=== PATIENT | female | born 1980 | race Caucasian/White ===

== ENCOUNTER 2018-04-04 03:42 | Emergency (ER) | payer MEDICARE ==
[~2018-04-04] VITALS: Ht 175.3 cm; Wt 145.6 kg
[~2018-04-04 03:42] MED LIST: ADIPEX-P37.5 M1 PO; ASMANEX0.24 GM INH; ATIVAN1 MG PO; DILAUDID8 MG PO; ELIQUIS2.5 MG PO; FORADIL12 MCG INH; HYDROCHLOROTH12.5 M1 PO; HYDROCODONE-APA1 TAB PO; PRILOSEC20 MG PO; ROBAXIN-750750 MG PO; SINGULAIR10 MG PO; VENTOLIN HFA18 GM INH; ZOCOR20 MG PO
[2018-04-04 03:48] VITALS: Ht 175.3 cm; Wt 145.6 kg
[2018-04-04] MEDS ORDERED: BREO ELLIPTA 21 EACH (03:52)
[2018-04-04] MEDS ORDERED: COZAAR50 MG PO (03:54)
[2018-04-04] MEDS ORDERED: ZOCOR20 MG PO (03:54)
[2018-04-04] MEDS ORDERED: HYDROCHLOROTHIA25 MG PO (03:55)
[2018-04-04] MEDS ORDERED: ADDERALL 30 MG30 MG PO (03:55)
[2018-04-04] MEDS ORDERED: RANITIDINE HCL150 M1 PO (03:55)
[2018-04-04] MEDS ORDERED: ZYRTEC10 MG (03:55)
[2018-04-04] MEDS ORDERED: XANAX2 MG PO (03:56)
[2018-04-04] MEDS ORDERED: SOMA350 MG PO (03:56)
[2018-04-04] MEDS ORDERED: DOXEPIN HCL75 MG PO (03:57)
[2018-04-04] MEDS ORDERED: ALBUTEROL2.5 MG/3 M INH (05:05)
[2018-04-04 05:11] VITALS: BP 100/70
== END 2018-04-04 05:13 | disposition home or self-care (01) ==
LOC: D.ER 03:42
DX: J44.9 Chronic obstructive pulmonary disease, unspecified (principal); J45.909 Unspecified asthma, uncomplicated; R06.02 Shortness of breath; I10 Essential (primary) hypertension

== ENCOUNTER → 2018-05-16 16:32 | Outpatient (CLI) | payer MEDICARE ==
[2018-04-04 03:48] VITALS: BMI 47.8
[~2018-05-16 16:32] MED LIST changes: +ADDERALL 30 MG30 MG PO; +ALBUTEROL2.5 MG/3 M INH; +BREO ELLIPTA 21 EACH; +COZAAR50 MG PO; +DOXEPIN HCL75 MG PO; +HYDROCHLOROTHIA25 MG PO; +RANITIDINE HCL150 M1 PO; +SOMA350 MG PO; +XANAX2 MG PO; +ZYRTEC10 MG
== END | disposition home or self-care (01) ==
LOC: D.US 16:00
DX: M79.602 Pain in left arm (principal)

== ENCOUNTER 2018-10-04 16:12 | Inpatient (IN) | payer MEDICARE ==
[~2018-10-04] VITALS: Ht 175.3 cm; Wt 149.1 kg
[2018-10-04 17:37] LABS: BASOPHILS 0.2 % (0-2); EOSINOPHILS 2.5 % (0-7); HEMATOCRIT 38.9 % (36.0-48.0); HEMOGLOBIN 13.7 g/dL (12-16); IMMATURE GRANULOCYTES 0.3 % (0-5); LYMPHOCYTES 17.1 % (15-50); MCH 31.9 pg (26.0-34.0); MCHC 35.2 g/dL (31.0-37.0); MCV 90.5 fL (80.0-100.0); MEAN PLATELET VOLUME 8.7 fL (7.4-10.4); MONOCYTES 7.1 % (2-11); NEUTROPHILS 72.8 % (40-80); PLATELET COUNT 181 10x3/uL (130-400); RDW 13.3 % (11.5-14.5); WBC 10.3 10x3/uL (4.8-10.8)
[2018-10-04 17:51] LABS: ALBUMIN 3.5 g/dL (3.4-5.0); ANION GAP 10.7 mmol/L (8-16); BILIRUBIN - TOTAL 1.44 mg/dL (0.2-1.3); CALCIUM 8.7 mg/dL (8.5-10.1); CARBON DIOXIDE 30.6 mmol/L (21.0-32.0); CREATININE - SERUM 0.9 mg/dL (0.6-1.3); POTASSIUM - SERUM 3.3 mmol/L (3.5-5.1); PROTEIN - SERUM 7.1 g/dL (6.4-8.2)
--- NOTE | 2018-10-04 19:26 | NUR ---
REC'D PATIENT FROM ER. NO S/S OF DISTRESS. GUEST AT BEDSIDE. PATIENT DENIES NEEDS AT THIS TIME. WILL CONTINUE TO MONITOR.
[2018-10-04 19:44] VITALS: BP 141/84
[2018-10-04] MEDS ORDERED: AMOXICILLIN500 M1 PO (19:45)
[2018-10-04] MEDS ORDERED: PROZAC20 MG PO (19:45)
[2018-10-04] MEDS ORDERED: LEVOCETIRIZINE PO (19:47)
[2018-10-04 22:55] VITALS: BP 141/84; BMI 48.5
[2018-10-05 00:28] VITALS: BP 119/74
[2018-10-05 04:00] VITALS: BP 124/80
[2018-10-05 07:26] LABS: BASOPHILS 0.3 % (0-2); EOSINOPHILS 2.7 % (0-7); HEMATOCRIT 38.1 % (36.0-48.0); IMMATURE GRANULOCYTES 0.1 % (0-5); LYMPHOCYTES 23.5 % (15-50); MCH 31.1 pg (26.0-34.0); MCHC 34.1 g/dL (31.0-37.0); MCV 91.1 fL (80.0-100.0); MEAN PLATELET VOLUME 8.9 fL (7.4-10.4); MONOCYTES 9.3 % (2-11); NEUTROPHILS 64.1 % (40-80); PLATELET COUNT 211 10x3/uL (130-400); RBC 4.18 10x6/uL (4.00-5.40); RDW 13.6 % (11.5-14.5)
[2018-10-05 07:30] LABS: WBC 7.7 10x3/uL (4.8-10.8)
[2018-10-05 07:56] VITALS: BP 105/56
[2018-10-05 08:19] VITALS: Ht 175.3 cm; Wt 149.1 kg
[2018-10-05 08:27] LABS: ALBUMIN 3.3 g/dL (3.4-5.0); ALKALINE PHOSPHATASE 74 U/L (46-116); ALT (SGPT) 66 U/L (10-68); BILIRUBIN - TOTAL 1.08 mg/dL (0.2-1.3); CALC OSMOLALITY 276 mosm/kg (275-300); CARBON DIOXIDE 31.2 mmol/L (21.0-32.0); CHLORIDE - SERUM 102 mmol/L (98-107); CREATININE - SERUM 0.7 mg/dL (0.6-1.3); GLUCOSE 87 mg/dL (74-106); POTASSIUM - SERUM 3.4 mmol/L (3.5-5.1); PROTEIN - SERUM 6.9 g/dL (6.4-8.2); SODIUM 140 mmol/L (136-145); UREA NITROGEN 9 mg/dL (7-18); eGFR NON AFRICAN AMERICAN > 90 mL/min (90-120)
--- NOTE | 2018-10-05 09:32 | NUR ---
PATIENT REFUSES XANAX AND SOMA AND NICOTINE PATCH, REQUEST THEY BE PRN
[2018-10-05 12:10] VITALS: BP 107/74
[2018-10-05 15:55] VITALS: BP 126/70
[2018-10-05 16:43] LABS: APPEARANCE CLEAR (CLEAR); BILIRUBIN NEGATIVE (NEGATIVE); COLOR STRAW (YELLOW); GLUCOSE NEGATIVE (NEGATIVE); KETONE NEGATIVE (NEGATIVE); NITRITE NEGATIVE (NEGATIVE); PROTEIN NEGATIVE (NEGATIVE); UROBILINOGEN NORMAL (NORMAL)
[2018-10-05 16:44] LABS: BACTERIA FEW /hpf (NONE SEEN); EPITHELIAL CELLS 0-5 /hpf (0-5); RED CELLS - URINE 0-5 /hpf (0-5); WHITE CELLS - URINE 0-5 /hpf (0-5); YEAST >1+ WITH HYPHAE /hpf (NONE SEEN)
[2018-10-05 16:53] LABS: UDS - AMPHET POSITIVE QUAL (NEGATIVE); UDS - BARB NEGATIVE QUAL (NEGATIVE); UDS - BENZO NEGATIVE QUAL (NEGATIVE); UDS - COCAINE NEGATIVE QUAL (NEGATIVE); UDS - OPIATE POSITIVE QUAL (NEGATIVE); UDS - PCP NEGATIVE QUAL (NEGATIVE); UDS - THC NEGATIVE QUAL (NEGATIVE)
--- NOTE | 2018-10-05 16:53 | NUR ---
PATIENT REQUEST MECHANICAL SOFT DIET FOR NOW SHE IS HAVING DIFFICULTY SWALLOWING HER FOOD DUE TO THE FACIAL EDEMA
--- NOTE | 2018-10-05 19:15 | NUR ---
PATIENT RESTING IN BED AND DENIES NEEDS AT THIS TIME. BED IN LOWEST POSITION AND CALL LIGHT WITHIN REACH. ENCOURAGED THE PATIENT TO CALL IF SHE HAS NEEDS. WILL CONTINUE TO MONITOR.
[2018-10-05 19:52] VITALS: BP 128/70
[2018-10-06 04:00] VITALS: BP 130/61
[2018-10-06 06:48] LABS: BASOPHILS 0.3 % (0-2); EOSINOPHILS 3.3 % (0-7); HEMATOCRIT 37.8 % (36.0-48.0); HEMOGLOBIN 12.7 g/dL (12-16); IMMATURE GRANULOCYTES 0.1 % (0-5); LYMPHOCYTES 28.6 % (15-50); MCH 31.3 pg (26.0-34.0); MCHC 33.6 g/dL (31.0-37.0); MEAN PLATELET VOLUME 9.1 fL (7.4-10.4); MONOCYTES 10.1 % (2-11); NEUTROPHILS 57.6 % (40-80); PLATELET COUNT 213 10x3/uL (130-400); RBC 4.06 10x6/uL (4.00-5.40); RDW 13.7 % (11.5-14.5); WBC 6.7 10x3/uL (4.8-10.8)
[2018-10-06 06:59] LABS: MCV 93.1 fL (80.0-100.0)
[2018-10-06 07:00] LABS: CALCIUM 9.1 mg/dL (8.5-10.1); CARBON DIOXIDE 32.6 mmol/L (21.0-32.0); CHLORIDE - SERUM 102 mmol/L (98-107); CREATININE - SERUM 0.8 mg/dL (0.6-1.3); POTASSIUM - SERUM 3.6 mmol/L (3.5-5.1); SODIUM 141 mmol/L (136-145); eGFR NON AFRICAN AMERICAN 85 mL/min (90-120)
[2018-10-06 07:02] LABS: CALC OSMOLALITY 278 mosm/kg (275-300); GLUCOSE 61 mg/dL (74-106); UREA NITROGEN 13 mg/dL (7-18)
--- NOTE | 2018-10-06 07:15 | NUR ---
RESPIRATORY AT BEDSIDE, PT A/O X4, RESP EVEN AND NONLABORED ON RA. RT WRIST NS AT 10. PT DENIES ANY NEEDS AT THIS TIME. CALL LIGHT IN REACH, NAD NOTED, WILL CONTINUE PLAN OF CARE.
[2018-10-06 07:42] VITALS: BP 103/75
--- NOTE | 2018-10-06 08:06 | NUR ---
AM MEDS GIVEN AT THIS TIME. ALSO GAVE 1MG OF DILAUDID FOR PAIN LEVEL OF 10/10. PT DENIES ANY OTHER NEEDS AT THIS TIME. CALL LIGHT IN REACH, NAD NOTED, FEMALE FRIEND AT BEDSIDE, NAD NOTED, WILL CONTINUE TO MONITOR.
--- NOTE | 2018-10-06 08:45 | MORECARE ---
CASE MANAGEMENT DISCHARGE SUMMARY PATIENT: EDILIA KUMAR UNIT: [id number] ADM DATE: 10/04/18 AGE: 38 : 80 SEX: F ROOM/BED: D.1202 AUTHOR: JAY JAY ESPAÑA PHYSICIAN: REFERRING PHYSICIAN: ARACELI POWELL MD DATE OF SERVICE: 10/06/18 Discharge Plan Patient Name: EDILIA KUMAR Facility: [facility]:[place] : 1980 Planned Disposition: Home Anticipated Discharge Date: Discharge Date: Expected LOS: Initial Reviewer: [email or web address] Initial Review Date: 10/04/2018 Generated: 10/06/18 9:45 am DCPIA - Discharge Planning Initial Assessment Updated by [email or web address]: Anne Marie Sue on 10/06/18 8:45 am * Is the patient Alert and Oriented? Yes * How many steps to enter\exit or inside your home? * PCP [place] * Pharmacy [facility] in [facility] * Preadmission Environment Home with Family * ADLs Independent * List name and contact numbers for known caregivers / representatives who currently or will assist patient after discharge: kenneth [phone] * Verbal permission to speak to the caregivers and representatives has been obtained from the patient. Yes * Additional services required to return to the preadmission environment? No * Can the patient safely return to the preadmission environment? Yes * Has this patient been hospitalized within the prior 30 days at any hospital? No Patient Name: EDILIA KUMAR Page [id number] at 0845 All edits/amendments must be made on the electronic document DICTATION DATE: 10/06/1844 SHAPE BRICK MOLDER: MAIKEL 10/06/1844 RPT#: [id number] DC DATE: STATUS: ADM IN [facility] [address] [place] [address] END OF REPORT
--- NOTE | 2018-10-06 08:52 | MORECARE ---
CASE MANAGEMENT DISCHARGE SUMMARY PATIENT: EDILIA KUMAR UNIT: [id number] ADM DATE: 10/04/18 AGE: 38 : 80 SEX: F ROOM/BED: D.1202 AUTHOR: JAY JAY ESPAÑA PHYSICIAN: REFERRING PHYSICIAN: ARACELI POWELL MD DATE OF SERVICE: 10/06/18 Discharge Plan Patient Name: EDILIA KUMAR Facility: [facility]:[place] : 1980 Planned Disposition: Home Anticipated Discharge Date: Discharge Date: Expected LOS: Initial Reviewer: [email or web address] Initial Review Date: 10/04/2018 Generated: 10/06/18 9:51 am Comments DCP- Discharge Planning Updated by [email or web address]: Anne Marie Sue on 10/06/18 7:[address] Patient Name: EDILIA KUMAR Encounter No: [id number] : 1980 Primary Insurance: [employer] Anticipated DC Date: Planned Disposition: Home External Planned Provider: : DCP follow-up note: Patient and family in agreement with discharge plan. No changes to plan. Case management will follow and assist as needed. Anne Marie SuePatient Name: EDILIA KUMAR Admission Status: ER Accout number: [id number] Admission Date: 10-04-2018 : 1980 Admission Diagnosis: Attending: ARACELI POWELL Current LOS: 2 Anticipated DC Date: Planned Disposition: Home Primary Insurance: [employer] MED[employer]ARE SOLUTIONS Discharge Planning Comments: CM met with patient to complete initial dc planning assessment. CM educated patient on the CM role and verbal consent given by patient to complete assessment. CM verified patient's address, phone number, and emergency contact phone numbers. Patient lives at home with FAMILY and reports She is independent in her care. At discharge patient plans to return home and feels this is a safe discharge. CM discussed availability of home health, rehab services, and medical equipment. Patient denied known discharge needs at this time. Patient reports Kenneth will transport her home at time of discharge. CM will continue to follow and will assist as needed with dc plans/needs. Fiscal Specialist: Anne Marie SuePatient Name: EDILIA KUMAR Admission Status: ER Accout number: [id number] Admission Date: 10-04-2018 : 1980 Admission Diagnosis: Attending: ARACELI POWELL Current LOS: 2 Anticipated DC Date: Planned Disposition: Home Primary Insurance: [facility] MEDICARE SOLUTIONS Discharge Planning Comments: Fiscal Specialist: Anne Marie Sue DCPIA - Discharge Planning Initial Assessment Updated by [email or web address]: Anne Marie Sue on 10/06/18 8:45 am * Is the patient Alert and Oriented? Yes * How many steps to enter\exit or inside your home? * PCP [place] * Pharmacy [facility] in [facility] * Preadmission Environment Home with Family * ADLs Independent * List name and contact numbers for known caregivers / representatives who currently or will assist patient after discharge: kenneth [phone] * Verbal permission to speak to the caregivers and representatives has been obtained from the patient. Yes * Additional services required to return to the preadmission environment? No * Can the patient safely return to the preadmission environment? Yes * Has this patient been hospitalized within the prior 30 days at any hospital? No Last DP export: 10/06/18 7:45 a Patient Name: EDILIA KUMAR Page [id number] at 0852 All edits/amendments must be made on the electronic document DICTATION DATE: 10/06/18850 PROFESSOR OF SPECIAL EDUCATION: MAIKEL 10/06/18850 RPT#: [id number] DC DATE: STATUS: ADM IN [facility] [address] [place] [address] END OF REPORT
--- NOTE | 2018-10-06 10:06 | NUR ---
PT WANTING TO TAKE A SHOWER, WRAPPED PT'S IV SITE AND PROVIDED PT WITH THE SUPPLIES NEEDED FOR SHOWER. PT STATED THAT FEMALE FRIEND AT BEDSIDE WOULD CHANGE HER BED.
[2018-10-06 11:57] VITALS: BP 112/86
[2018-10-06 15:41] VITALS: BP 110/74
--- NOTE | 2018-10-06 15:56 | NUR ---
1MG OF DILAUDID GIVEN FOR PAIN LEVEL OF 10/10. IVPB CLEOCIN HUNG AT THIS TIME. PT DENIES ANY OTHER NEEDS AT THIS TIME. CALL LIGHT IN REACH, NAD NOTED.
[2018-10-06 19:46] VITALS: BP 121/74
[2018-10-07] VITALS: BP 94/64
[2018-10-07 04:30] VITALS: BP 108/72
[2018-10-07 06:52] LABS: BASOPHILS 0.3 % (0-2); EOSINOPHILS 3.1 % (0-7); HEMATOCRIT 34.7 % (36.0-48.0); HEMOGLOBIN 11.7 g/dL (12-16); IMMATURE GRANULOCYTES 0.3 % (0-5); MCH 31.3 pg (26.0-34.0); MCHC 33.7 g/dL (31.0-37.0); MCV 92.8 fL (80.0-100.0); MEAN PLATELET VOLUME 8.7 fL (7.4-10.4); MONOCYTES 11.6 % (2-11); NEUTROPHILS 51.7 % (40-80); PLATELET COUNT 179 10x3/uL (130-400); RBC 3.74 10x6/uL (4.00-5.40); RDW 13.6 % (11.5-14.5); WBC 6.4 10x3/uL (4.8-10.8)
[2018-10-07 07:04] LABS: CALC OSMOLALITY 282 mosm/kg (275-300); CALCIUM 8.5 mg/dL (8.5-10.1); CARBON DIOXIDE 33.2 mmol/L (21.0-32.0); CHLORIDE - SERUM 104 mmol/L (98-107); CREATININE - SERUM 0.8 mg/dL (0.6-1.3); POTASSIUM - SERUM 4.1 mmol/L (3.5-5.1); SODIUM 142 mmol/L (136-145); UREA NITROGEN 13 mg/dL (7-18); eGFR NON AFRICAN AMERICAN 85 mL/min (90-120)
[2018-10-07 07:18] LABS: GLUCOSE 102 mg/dL (74-106)
--- NOTE | 2018-10-07 07:26 | NUR ---
INITIAL ROUNDING ON THE PATIENT, SHE IS AWAKE AND RESTING IN BED. HER PARTNER IS ASLEEP IN BEDSIDE CHAIR. PATIENT ON RA, AND DENIES ANY NEEDS AT THIS TIME. CALL LIGHT IN REACH
[2018-10-07 07:32] VITALS: BP 128/74
[2018-10-07] MEDS ORDERED: FLORAJEN3 CAPS460 MG PO (10:41)
[2018-10-07] MEDS ORDERED: CLEOCIN HCL300 MG PO (10:42)
--- NOTE | 2018-10-07 12:58 | NUR ---
REMOVED THE IV FROM THE RIGHT WRIST, CATH TIP INTACT.
--- NOTE | 2018-10-07 15:00 | MORECARE ---
CASE MANAGEMENT DISCHARGE SUMMARY PATIENT: EDILIA KUMAR UNIT: [id number] ADM DATE: 10/04/18 AGE: 38 : 80 SEX: F ROOM/BED: D.1202 AUTHOR: JAY JAY ESPAÑA PHYSICIAN: REFERRING PHYSICIAN: ARACELI POWELL MD DATE OF SERVICE: 10/07/18 Discharge Plan Patient Name: EDILIA KUMAR Facility: [facility]:[place] : 1980 Planned Disposition: Home Anticipated Discharge Date: Discharge Date: 10/07/2018 Expected LOS: Initial Reviewer: [email or web address] Initial Review Date: 10/04/2018 Generated: 10/07/18 3:59 pm Comments DCP- Discharge Planning Updated by [email or web address]: Anne Marie Sue on 10/06/18 7:[address] Patient Name: EDILIA KUMAR Encounter No: [id number] : 1980 Primary Insurance: [facility] MEDICARE SOLUTIONS Anticipated DC Date: Planned Disposition: Home External Planned Provider: : DCP follow-up note: Patient and family in agreement with discharge plan. No changes to plan. Case management will follow and assist as needed. Anne Marie SuePatient Name: EDILIA KUMAR Admission Status: ER Accout number: [id number] Admission Date: 10-04-2018 : 1980 Admission Diagnosis: Attending: ARACELI POWELL Current LOS: 2 Anticipated DC Date: Planned Disposition: Home Primary Insurance: [facility] MEDICARE SOLUTIONS Discharge Planning Comments: CM met with patient to complete initial dc planning assessment. CM educated patient on the CM role and verbal consent given by patient to complete assessment. CM verified patient's address, phone number, and emergency contact phone numbers. Patient lives at home with FAMILY and reports She is independent in her care. At discharge patient plans to return home and feels this is a safe discharge. CM discussed availability of home health, rehab services, and medical equipment. Patient denied known discharge needs at this time. Patient reports Kenneth will transport her home at time of discharge. CM will continue to follow and will assist as needed with dc plans/needs. Assistant Banquet Manager: Anne Marie SuePatient Name: EDILIA KUMAR Admission Status: ER Accout number: [id number] Admission Date: 10-04-2018 : 1980 Admission Diagnosis: Attending: ARACELI POWELL Current LOS: 2 Anticipated DC Date: Planned Disposition: Home Primary Insurance: [facility] MEDICARE SOLUTIONS Discharge Planning Comments: Assistant Banquet Manager: Anne Marie Sue DCPIA - Discharge Planning Initial Assessment Updated by [email or web address]: Anne Marie Sue on 10/06/18 8:45 am * Is the patient Alert and Oriented? Yes * How many steps to enter\exit or inside your home? * PCP [place] * Pharmacy [facility] * Preadmission Environment Home with Family * ADLs Independent * List name and contact numbers for known caregivers / representatives who currently or will assist patient after discharge: kenneth [phone] * Verbal permission to speak to the caregivers and representatives has been obtained from the patient. Yes * Additional services required to return to the preadmission environment? No * Can the patient safely return to the preadmission environment? Yes * Has this patient been hospitalized within the prior 30 days at any hospital? No Last DP export: 10/06/18 7:51 a Patient Name: EDILIA KUMAR Page 54502 at 1500 All edits/amendments must be made on the electronic document DICTATION DATE: 10/07/181458 BEVERAGE SALES CONSULTANT: MAIKEL 10/07/181458 RPT#: [id number] DC DATE:10/07/18 STATUS: DIS IN [facility] [address] [place] [address] END OF REPORT
== END 2018-10-07 12:59 | disposition home or self-care (01) | DRG 158 ==
LOC: D.ER 16:12 → D.M3 18:11
PROVIDERS: Family Medicine; ADMIT Internal Medicine Nephrology; ATTEND Internal Medicine Nephrology
DX: K04.7 Periapical abscess without sinus (principal); L03.211 Cellulitis of face; F17.213 Nicotine dependence, cigarettes, with withdrawal; Z68.42 Body mass index [BMI] 45.0-49.9, adult; E87.6 Hypokalemia; I10 Essential (primary) hypertension; F41.9 Anxiety disorder, unspecified; F31.9 Bipolar disorder, unspecified; F42.9 Obsessive-compulsive disorder, unspecified; F98.8 Other specified behavioral and emotional disorders with onset usually occurring in childhood and adolescence; E66.01 Morbid (severe) obesity due to excess calories; J45.909 Unspecified asthma, uncomplicated; J44.9 Chronic obstructive pulmonary disease, unspecified

== ENCOUNTER → 2020-10-17 18:27 | Outpatient (CLI) | payer OTHER ==
[2020-06-20 10:18] VITALS: BMI 45.9
[~2020-10-17 18:27] MED LIST changes: +AMOXICILLIN500 M1 PO; +CLEOCIN HCL300 MG PO; +FLORAJEN3 CAPS460 MG PO; +HYDROCODON-ACE1 EA10 PO; +LEVOCETIRIZINE PO; +PEPCID AC20 MG PO; +PROZAC20 MG PO
== END | disposition home or self-care (01) ==
LOC: D.LABREF 18:27
PROVIDERS: ATTEND Orthopaedic Surgery
DX: M17.11 Unilateral primary osteoarthritis, right knee (principal)